=== PATIENT | female | born 1950 | race Caucasian/White ===

== ENCOUNTER → 2018-06-22 | Outpatient (REF) ==
[~2018-06-22] MED LIST: BUMEX OR; K-LOR20 MEQ OR; LEVOTHROID OR; METOPROL TAR25 MG PO; PRINIVIL20 MG OR; ZOFRAN ODT4 MG PO
== END | disposition home or self-care (01) | DRG 951 ==
LOC: PAGE 11:00
PROVIDERS: ATTEND Family Medicine
DX: Z02.1 Encounter for pre-employment examination (principal); Z23 Encounter for immunization

== ENCOUNTER 2021-03-06 22:15 | Emergency (ER) | payer MEDICARE, OTHER ==
[~2021-03-06] VITALS: Ht 162.6 cm; Wt 106.0 kg
[2021-03-06] MEDS ORDERED: ZESTRIL10 M1 PO (23:03)
[2021-03-06] MEDS ORDERED: CALCIUM500 M3 PO (23:04)
[2021-03-06 23:06] LABS: HEMATOCRIT 39.1 % (37.0-47.0); HEMOGLOBIN 12.9 g/dl (12.0-16.0); IMMATURE GRANULOCYTES 0.5 % (0.0-5.0); MEAN CELL VOLUME 93.8 fL CALC (80.0-100.0); MEAN CORPUSCULAR HGB 30.9 pG CALC (26.0-32.0); NEUT# 5.19 thou/uL (2.00-7.15); RED BLOOD COUNT 4.17 mill/uL (4.20-5.60); RED CELL DISTRI WIDTH 13.1 % (11.5-15.5)
[2021-03-06 23:20] LABS: ALBUMIN 3.9 g/dL (3.2-5.0); ALKALINE PHOSPHATASE 59 u/l (38-126); ANION GAP 10 (6-22 (CALC)); BILIRUBIN, TOTAL 0.8 mg/dL (0.0-1.4); BUN 20 mg/dL (8-23); BUN/CREATININE RATIO 22 (12-20 (CALC)); CARBON DIOXIDE 25 mmol/l (22-30); CHLORIDE 103 mmol/l (95-108); CREATININE 0.9 mg/dL (0.5-1.0); GFR > 60 ML/MIN (>=60 (CALC)); GFR FOR AFR.AMER. > 60 ML/MIN (>=60 (CALC)); POTASSIUM 3.8 mmol/l (3.5-5.1); SGOT/AST 23 u/l (9-36); SODIUM 134 mmol/l (137-146); TOTAL PROTEIN 7.1 g/dL (6.3-8.2)
[2021-03-07 00:30] VITALS: BP 140/72
== END 2021-03-07 00:30 | disposition home or self-care (01) ==
LOC: ED 22:15
PROVIDERS: Emergency Medicine
DX: R00.2 Palpitations (principal); E03.9 Hypothyroidism, unspecified; E11.9 Type 2 diabetes mellitus without complications; I10 Essential (primary) hypertension; Z79.899 Other long term (current) drug therapy

== ENCOUNTER 2023-10-27 10:09 | Emergency (ER) | payer MEDICARE, OTHER ==
[~2023-10-27] VITALS: Ht 162.6 cm; Wt 106.6 kg
[2023-10-27] VITALS (22 sets, daily range): BP systolic 74–200; BP diastolic 46–125
[~2023-10-27 10:09] MED LIST changes: +CALCIUM500 M3 PO; +ZESTRIL10 M1 PO
[2023-10-27 10:37] LABS: BASO% 0.4 % (0-3); EOS% 1.9 % (0-8); HEMATOCRIT 42.1 % (37.0-47.0); HEMOGLOBIN 14.1 g/dl (12.0-16.0); IMMATURE GRANULOCYTES 0.2 % (0.0-5.0); MEAN CELL VOLUME 90.5 fL CALC (80.0-100.0); MEAN CORPUSCULAR HGB 30.3 pG CALC (26.0-32.0); MEAN CORPUSCULAR HGB CONC 33.5 g/dL CAL (32.0-36.0); MONO% 10.9 % (2-13); NEUT# 3.07 thou/uL (2.00-7.15); NEUT% 59.6 % (42-76); RED BLOOD COUNT 4.65 mill/uL (4.20-5.60)
[2023-10-27 11:08] LABS: INTERNATIONAL NORMALIZED RATIO 1.1 RATIO (0.7-1.3); PROTHROMBIN TIME 10.1 SECONDS (9.0-12.5)
[2023-10-27 11:10] LABS: ALBUMIN 4.3 g/dL (3.2-5.0); ALKALINE PHOSPHATASE 60 u/l (38-126); ANION GAP 11 (6-22 (CALC)); BUN 16 mg/dL (8-23); BUN/CREATININE RATIO 17 (12-20 (CALC)); CARBON DIOXIDE 26 mmol/l (22-30); CHLORIDE 107 mmol/l (95-108); CHOLESTEROL HDL RATIO 4.7 (<4.4 (CALC)); GFR FOR AFR.AMER. > 60 ML/MIN (>=60 (CALC)); GFR OTHER RACES 54 ML/MIN (>=60 (CALC)); POTASSIUM 4.1 mmol/l (3.5-5.1); SGOT/AST 32 u/l (9-36); SODIUM 141 mmol/l (137-146); TOTAL PROTEIN 7.3 g/dL (6.3-8.2)
[2023-10-27 11:42] LABS: URINE BILIRUBIN - DIPSTICK Negative (NEGATIVE); URINE BLOOD DIPSTICK Negative (NEGATIVE); URINE GLUCOSE - DIPSTICK Negative (NEGATIVE); URINE KETONE Negative (NEGATIVE); URINE NITRITE - DIPSTICK Negative (Negative); URINE PH 5.5 (4.5-8.0); URINE PROTEIN - DIPSTICK Negative (NEG-TRACE); URINE UROBILINOGEN - DIPSTICK 0.2 E.U./dL (0.2)
[2023-10-27 11:43] LABS: URINE COLOR Yellow; URINE LEUK ESTERASE Moderate (NEGATIVE)
[2023-10-27 11:59] LABS: URINE BACTERIA FEW hpf; URINE SQUAMOUS EPITHELIAL CELL FEW EPI/hpf (0-FEW)
[2023-10-27] MEDS ORDERED: PREDNISONE50 MG PO (17:50)
[2023-10-27] MEDS ORDERED: ONDANSETRON4 MG PO (23:31)
[2023-10-28] MEDS ORDERED: ATIVAN0.5 MG PO ×2 (20:53→20:54)
== END 2023-10-27 18:41 | disposition home or self-care (01) ==
LOC: ED 10:09
PROVIDERS: Family Medicine
DX: R53.1 Weakness (principal); R42 Dizziness and giddiness; R51.9 Headache, unspecified; L29.9 Pruritus, unspecified; R13.10 Dysphagia, unspecified; T50.8X5A Adverse effect of diagnostic agents, initial encounter; I10 Essential (primary) hypertension; E11.9 Type 2 diabetes mellitus without complications; E03.9 Hypothyroidism, unspecified; Z20.822 Contact with and (suspected) exposure to COVID-19

== ENCOUNTER 2023-10-27 22:07 | Emergency (ER) | payer MEDICARE, OTHER ==
[~2023-10-27] VITALS: Ht 162.6 cm; Wt 110.0 kg
[~2023-10-27 22:07] MED LIST changes: +PREDNISONE50 MG PO
[2023-10-27 22:20] VITALS: BP 157/61
[2023-10-27 22:41] VITALS: BP 147/57
[2023-10-27 23:01] VITALS: BP 151/56
[2023-10-27 23:21] VITALS: BP 135/51
[2023-10-27] MEDS ORDERED: ONDANSETRON4 MG PO (23:31)
[2023-10-27 23:33] VITALS: BP 135/51
[2023-10-28] MEDS ORDERED: ATIVAN0.5 MG PO ×2 (20:53→20:54)
== END 2023-10-27 23:33 | disposition home or self-care (01) ==
LOC: ED 22:07
DX: R00.2 Palpitations (principal); R11.0 Nausea; R51.9 Headache, unspecified; I10 Essential (primary) hypertension; E11.9 Type 2 diabetes mellitus without complications; E03.9 Hypothyroidism, unspecified

== ENCOUNTER 2023-10-28 19:29 | Emergency (ER) | payer MEDICARE, OTHER ==
[~2023-10-28] VITALS: Ht 162.6 cm; Wt 104.0 kg
[~2023-10-28 19:29] MED LIST changes: +ONDANSETRON4 MG PO
[2023-10-28 20:01] VITALS: BP 152/59
[2023-10-28 20:16] VITALS: BP 153/71
[2023-10-28 20:22] LABS: BASO% 0.1 % (0-3); EOS% 0.2 % (0-8); HEMATOCRIT 39.2 % (37.0-47.0); HEMOGLOBIN 13.2 g/dl (12.0-16.0); IMMATURE GRANULOCYTES 0.3 % (0.0-5.0); LYMPH% 8.4 % (15-41); MEAN CELL VOLUME 89.1 fL CALC (80.0-100.0); MEAN CORPUSCULAR HGB CONC 33.7 g/dL CAL (32.0-36.0); MONO% 3.1 % (2-13); NEUT# 9.21 thou/uL (2.00-7.15); NEUT% 87.9 % (42-76); RED BLOOD COUNT 4.4 mill/uL (4.20-5.60)
[2023-10-28 20:31] VITALS: BP 159/53
[2023-10-28 20:34] LABS: ALBUMIN 4.2 g/dL (3.2-5.0); ALKALINE PHOSPHATASE 60 u/l (38-126); ANION GAP 12 (6-22 (CALC)); BILIRUBIN, TOTAL 0.7 mg/dL (0.02-1.3); BUN 24 mg/dL (8-23); BUN/CREATININE RATIO 22 (12-20 (CALC)); CHLORIDE 108 mmol/l (95-108); CREATININE 1.1 mg/dL (0.5-1.0); GFR FOR AFR.AMER. 59 ML/MIN (>=60 (CALC)); GFR OTHER RACES 49 ML/MIN (>=60 (CALC)); POTASSIUM 4.4 mmol/l (3.5-5.1); SGOT/AST 33 u/l (9-36); SODIUM 136 mmol/l (137-146)
[2023-10-28 20:36] LABS: CARBON DIOXIDE 20 mmol/l (22-30)
[2023-10-28 20:46] VITALS: BP 139/48
[2023-10-28] MEDS ORDERED: ATIVAN0.5 MG PO ×2 (20:53→20:54)
[2023-10-28 21:00] VITALS: BP 145/51
[2023-10-28 21:28] VITALS: BP 145/51
== END 2023-10-28 21:28 | disposition home or self-care (01) ==
LOC: ED 19:29
PROVIDERS: Family Medicine
DX: R07.9 Chest pain, unspecified (principal); F41.9 Anxiety disorder, unspecified; I10 Essential (primary) hypertension; E11.9 Type 2 diabetes mellitus without complications; E03.9 Hypothyroidism, unspecified; Z86.73 Personal history of transient ischemic attack (TIA), and cerebral infarction without residual deficits

== ENCOUNTER 2023-11-10 11:00 | Observation (INO) | payer MEDICARE ==
[2023-11-10] VITALS (17 sets, daily range): BP systolic 155–197; BP diastolic 46–102
[~2023-11-10] VITALS: Ht 162.6 cm; Wt 102.9 kg
[~2023-11-10 11:00] MED LIST changes: +ATIVAN0.5 MG PO
--- NOTE | 2023-11-10 11:00 | NUR ---
PT BROUGHT IN VIA EMS TO ER ROOM , NAD NOTED
[2023-11-10] MEDS ORDERED: cefTRIAXone SODIUM 2 GM in SODIUM CHLORIDE 0.9% 100 ML IV ONE (11:20)
--- NOTE | 2023-11-10 11:20 | NUR ---
IN ROOM TO OBTAIN U/A WITH STRAIGHT CATH, JHON WIC PLACED, CALL LIGHT IN REACH, VSS, NAD NOTED, CALL LIGHT IN REACH, PT DAUGHTER ARRIVER TO ROOM.
--- NOTE | 2023-11-10 11:55 | NUR ---
IN ROOM TO MEDICATE PT PER EMAR, NAD NOTED, VSS, CALL LIGHT IN REACH.
[2023-11-10 12:05] LABS: URINE BLOOD DIPSTICK Negative (NEGATIVE); URINE GLUCOSE - DIPSTICK Negative (NEGATIVE); URINE KETONE Negative (NEGATIVE); URINE LEUK ESTERASE Negative (NEGATIVE); URINE NITRITE - DIPSTICK Negative (Negative); URINE PH 5.5 (4.5-8.0); URINE PROTEIN - DIPSTICK Negative (NEG-TRACE); URINE SPECIFIC GRAVITY 1.025
[2023-11-10 12:06] LABS: BASO% 0.6 % (0-3); EOS% 2.5 % (0-8); HEMOGLOBIN 14.1 g/dl (12.0-16.0); IMMATURE GRANULOCYTES 0.4 % (0.0-5.0); MEAN CELL VOLUME 92.6 fL CALC (80.0-100.0); MEAN CORPUSCULAR HGB 29.7 pG CALC (26.0-32.0); MONO% 7.9 % (2-13); NEUT# 4.1 thou/uL (2.00-7.15); NEUT% 61.6 % (42-76); RED BLOOD COUNT 4.75 mill/uL (4.20-5.60); RED CELL DISTRI WIDTH 13.5 % (11.5-15.5)
[2023-11-10 12:07] LABS: URINE COLOR Yellow
[2023-11-10 12:32] LABS: PROTHROMBIN TIME 9.8 SECONDS (9.0-12.5)
[2023-11-10 12:36] LABS: ALBUMIN 4.2 g/dL (3.2-5.0); ALKALINE PHOSPHATASE 71 u/l (38-126); ANION GAP 12 (6-22 (CALC)); BUN 17 mg/dL (8-23); BUN/CREATININE RATIO 19 (12-20 (CALC)); CARBON DIOXIDE 24 mmol/l (22-30); CHLORIDE 107 mmol/l (95-108); CREATININE 0.9 mg/dL (0.5-1.0); GFR FOR AFR.AMER. > 60 ML/MIN (>=60 (CALC)); GFR OTHER RACES > 60 ML/MIN (>=60 (CALC)); POTASSIUM 4.1 mmol/l (3.5-5.1); SGOT/AST 25 u/l (9-36); SODIUM 140 mmol/l (137-146); TOTAL PROTEIN 7.4 g/dL (6.3-8.2)
--- NOTE | 2023-11-10 12:40 | NUR ---
Reassessment of patient completed. No distress noted. VSS, CALL LIGHT IN REACH, I/V ANTIBIOTICS FINISHED, I/V FLUSHED AND PATENT.
[2023-11-10 12:55] LABS: BILIRUBIN, TOTAL 1.1 mg/dL (0.02-1.3)
--- NOTE | 2023-11-10 13:36 | NUR ---
IN ROOM PO FLUIDS GIVEN, REPOSITIONED IN BED, B/P SLIGHTLY ELEVATED, WILL ADVISE PROVIDER, NAD NOTED, DAUGHTER AT BEDSIDE, CALL LIGHT IN REACH.
--- NOTE | 2023-11-10 14:25 | NUR ---
PROVIDER AT BEDSIDE TO DISCUSS POC FOR ADMISSION, NAD NOTED, CALL LIGHT IN REACH.
[2023-11-10] MEDS ORDERED: LABETALOL HCL 100 MG/20 ML VIAL IV ONE (14:30)
[2023-11-10] MEDS ORDERED: SODIUM CHLORIDE 0.9% 1,000 ML IV PRN (14:35)
[2023-11-10] MEDS ORDERED: MAGNESIUM HYDROXIDE 30 ML UDC PO PRN (14:35)
[2023-11-10] MEDS ORDERED: ACETAMINOPHEN 325 MG/TAB PO PRN (14:35)
[2023-11-10] MEDS ORDERED: AMLODIPINE BESYL5 MG PO (14:39)
--- NOTE | 2023-11-10 15:17 | NUR ---
REPORT CALLED TO [facility] NURSE FOR ROOM [address] [place], ADVISED PT WILL BE ON TELE # 12.
[2023-11-10] MEDS ORDERED: ALBUTEROL SULFATE 8 GM INH IN PRN (15:20)
--- NOTE | 2023-11-10 15:40 | NUR ---
PT TAKEN TO [facility] ROOM 266 VIA STRETCHER ON TELE # 12, VSS, NAD NOTED, ALL BELONGINGS SENT WITH PT TO [facility], PT WORE [facility] FOR TRANSPORT.
[2023-11-10] MEDS ORDERED: DOXYCYCLINE HYCLATE 100 MG in SODIUM CHLORIDE 0.9% 100 ML IV SCH (16:00)
--- NOTE | 2023-11-10 16:00 | NUR ---
PT ARRIVED TO THE UNIT VIA [facility]REACH[facility] TRANSPORT WITH [facility]. BP 157/46, HR 68, O2 AT 96% ON RA, TEMP 98.7. LUNGS ARE DIM BILATERALLY, PT HAS A NON PRODUCTIVE COUGH, REPORTS FEELING "ACHEY ALL OVER" WITH LITTLE TO KNOW APPETITE AT THIS TIME.
--- NOTE | 2023-11-10 20:00 | NUR ---
RECEIVED BEDSIDE REPORT FROM DAYSHIFT NURSE. PT IS IN BED RESTING AT THIS TIME. PT MADE AWARE OF CHANGE OF NURSE AND CHANGE OF SHIFT. PT DENIES OF PAIN AT THIS MOMENT. SAFETY PRECAUTIONS IN PLACE AND CALL LIGHT WITHIN REACH.
[2023-11-10] MEDS ORDERED: ENOXAPARIN SODIUM 40 MG/0.4 ML SYR SC SCH (21:00)
--- NOTE | 2023-11-11 | NUR ---
PT IS IN BED SLEEPING COMFORTABLY AT THIS TIME. PT SHOWS NO PAIN AT THIS MOMENT. SAFETY PRECAUTIONS IN PLACE AND CALL LIKGHT WITHIN REACH.
[2023-11-11 00:47] VITALS: BP 164/50
[2023-11-11 00:48] VITALS: BP 159/61
--- NOTE | 2023-11-11 03:38 | NUR ---
PT IS IN BED AT THIS TIME SLEEPING COMFORTABLY. PT SHOWS NO SIGNS OF PAIN OR DISCOMFORT AT THIS TIME. SAFETY PRECAUTIONS IN PLACE AND CALL LIGHT WITHIN REACH.
[2023-11-11 04:36] LABS: BASO% 0.3 % (0-3); EOS% 1.4 % (0-8); HEMATOCRIT 39.6 % (37.0-47.0); HEMOGLOBIN 12.8 g/dl (12.0-16.0); IMMATURE GRANULOCYTES 0.3 % (0.0-5.0); LYMPH% 34.3 % (15-41); MEAN CELL VOLUME 92.7 fL CALC (80.0-100.0); MEAN CORPUSCULAR HGB CONC 32.3 g/dL CAL (32.0-36.0); MONO% 7.5 % (2-13); NEUT# 4.27 thou/uL (2.00-7.15); NEUT% 56.2 % (42-76); RED BLOOD COUNT 4.27 mill/uL (4.20-5.60); RED CELL DISTRI WIDTH 13.7 % (11.5-15.5)
[2023-11-11 04:43] VITALS: BP 150/55
[2023-11-11 04:55] LABS: ANION GAP 12 (6-22 (CALC)); BUN 15 mg/dL (8-23); BUN/CREATININE RATIO 17 (12-20 (CALC)); CARBON DIOXIDE 22 mmol/l (22-30); CHLORIDE 109 mmol/l (95-108); CREATININE 0.9 mg/dL (0.5-1.0); GFR FOR AFR.AMER. > 60 ML/MIN (>=60 (CALC)); GFR OTHER RACES > 60 ML/MIN (>=60 (CALC)); MAGNESIUM 1.9 mg/dL (1.6-2.3); POTASSIUM 4.2 mmol/l (3.5-5.1); SODIUM 138 mmol/l (137-146)
[2023-11-11 11:03] VITALS: BP 163/51
--- NOTE | 2023-11-11 12:02 | NUR ---
PATIENT LYING IN BED. DENIES PAIN AT THIS TIME. REFUSES ABX. NO APPARENT DISTRESS NOTED. WILL CONTINUE WITH PLAN OF CARE.
[2023-11-11 14:28] VITALS: BP 164/51
--- NOTE | 2023-11-11 15:57 | NUR ---
PATIENT LYING IN BED. DENIES PAIN AT THIS TIME. PATIENT ATTEMPTING TO CONTACT FAMILY FOR DISCHARGE PICKUP. NO OTHER ISSUES OR CONCERNS AT THIS TIME. WILL CONTINUE WITH PLAN OF CARE.
== END 2023-11-11 17:18 | disposition home health service (06) ==
LOC: ED 11:00 → ED-I 11:22 → ED 14:33 → MS2 14:34
PROVIDERS: Family Medicine; ADMIT Student in an Organized Health Care Education/Training Program; ATTEND Student in an Organized Health Care Education/Training Program
DX: U07.1 COVID-19 (principal); R53.1 Weakness; I10 Essential (primary) hypertension; E11.9 Type 2 diabetes mellitus without complications; F41.9 Anxiety disorder, unspecified; E03.9 Hypothyroidism, unspecified; Z86.73 Personal history of transient ischemic attack (TIA), and cerebral infarction without residual deficits
CPT/HCPCS: J1650